=== PATIENT | female | born 1985 | race Caucasian/White ===

== ENCOUNTER → 2017-10-16 | Outpatient (CLI) | payer OTHER ==
--- NOTE | 2017-10-16 14:06 | US ---
EXAMINATION TYPE: US OB <= 14 wk fetus DATE OF EXAM: 10/16/2017 COMPARISON: NONE CLINICAL HISTORY: Z36 Confirm dates. G1 EXAM PERFORMED: Transabdominal (TA) EXAM MEASUREMENTS: GESTATIONAL AGE / DATING Physician Established: not established Dates by LMP: (8 weeks/5 days) EDC: 05/23/2018 Dates by First Scan: No previous this is first scan Dates by Current Scan for: ( 8 weeks/5 days) EDC: 05/23/2018 MATERNAL ANATOMY Uterus: 10.2 x 6.1 x 5.5cm Right Ovary: 2.6 x 2.7 x 1.5cm Left Ovary: 4.4 x 3.7 x 2.2cm with Corpus Luteum of Post CDS / Adnexa: wnl Presence of free fluid: no Presence of corpus luteal cyst: in left ovary = 1.8 x 1.5 x 1.8cm Presence of subchorionic bleed: no GESTATION / SURVEY CRL: 2.1 (8 weeks/5 days) Yolk Sac (normal less than 6mm): 3.6mm Heart Rate: 177 bpm Rhythm: Normal IUP: Viable IUP Date of LMP: 08/16/2017 Beta HcG (if available): Not available at this time IMPRESSION: Single, viable IUP, 8 weeks/5 days, EDC: 05/23/2018; HR 177bpm.
[2017-10-16 14:25] LABS: CH 30.4; CHCM 32.9; HCT 43.1 % (34.0-46.0); HGB 13.8 gm/dL (11.4-16.0); MCH 29.6 pg (25.0-35.0); MCHC 31.9 g/dL (31.0-37.0); MCV 92.8 fL (80.0-100.0); Mean Platelet Volume 8.7; RBC 4.65 m/uL (3.80-5.40); WBC 9.5 k/uL (3.8-10.6)
[2017-10-16 14:37] LABS: Glucose 83 mg/dL (74-99); Non-African American GFR(MDRD) >60 (>60 ml/min/1.73 sqM)
[2017-10-16 19:24] LABS: Treponemal Ab Non-Reactive (Non-Reactive)
== END | disposition home or self-care (01) ==
LOC: RADUSWWP 13:18
PROVIDERS: ATTEND Obstetrics & Gynecology
DX: Z36.9 Encounter for antenatal screening, unspecified (principal); O26.811 Pregnancy related exhaustion and fatigue, first trimester; Z3A.01 Less than 8 weeks gestation of pregnancy
CPT/HCPCS: 36415; 76801; 82565; 82947; 85027; 86762; 86777; 86778; 86780; 86850; 86900; 86901; 87340; 87390

== ENCOUNTER 2018-05-21 20:30 | Inpatient (IN) | payer OTHER ==
[2018-05-21] MEDS ORDERED: TERBUTALINE 1 MG/ML VIAL SQ PRN (20:46)
[2018-05-21] MEDS ORDERED: LIDOCAINE 1% (PF) 10 MG/ML (30 ML SDV) SQ PRN (20:46)
[2018-05-21] MEDS ORDERED: METHYLERGONOVINE 0.2 MG/ML 1 ML AMP IM PRN (20:46)
[2018-05-21] MEDS ORDERED: CARBOPROST TROMETHAMINE 250 MCG/ML 1 ML AMP IM PRN (20:46)
[2018-05-21] MEDS ORDERED: OXYTOCIN 10 UNIT/ML 1 ML VIAL IM PRN (20:46)
[2018-05-21] MEDS ORDERED: AMPICILLIN 2,000 MG in SODIUM CHLORIDE 0.9% 100 ML IVPB STA (20:51)
[2018-05-21] MEDS: LACTATED RINGERS 1,000 ML IV SCH (21:15)
[2018-05-21 21:27] LABS: Basophils % (A) 0 %; Eosinophils % (A) 0 %; HCT 39.6 % (34.0-46.0); HGB 13.5 gm/dL (11.4-16.0); Lymphocytes # (A) 1.7 k/uL (1.0-4.8); Lymphocytes % (A) 9 %; MCH 30.7 pg (25.0-35.0); MCV 90.4 fL (80.0-100.0); Mean Platelet Volume 8.2; Monocytes # (A) 0.9 k/uL (0-1.0); Monocytes % (A) 5 %; Neutrophils # (A) 16.4 k/uL (1.3-7.7); Neutrophils % (A) 85 %; Platelet Count 290 k/uL (150-450); RBC 4.38 m/uL (3.80-5.40); RDW 12.8 % (11.5-15.5); WBC 19.3 k/uL (3.8-10.6)
[2018-05-21 22:17] VITALS: BMI 34.9
[2018-05-22] MEDS ORDERED: BENZOCAINE/MENTHOL SPRAY 1 GM/SPRAY AEROSOL TOPICAL PRN (00:06)
[2018-05-22] MEDS ORDERED: WITCH HAZEL 1 EACH MED..PAD TOPICAL PRN (00:06)
[2018-05-22] MEDS ORDERED: diphenhydrAMINE 50 MG/ML 1 ML VIAL IVP PRN ×2 (00:06)
[2018-05-22] MEDS ORDERED: ZOLPIDEM 5 MG TAB PO PRN (00:06)
[2018-05-22] MEDS ORDERED: LANOLIN CREAM 5 GM TUBE TOPICAL PRN (00:06)
[2018-05-22] MEDS ORDERED: HYDROCORTISONE 2.5% RECTAL CREAM 30 GM TUBE RECTAL PRN (00:06)
[2018-05-22] MEDS ORDERED: diphenhydrAMINE 50 MG CAP PO PRN (00:06)
[2018-05-22] MEDS ORDERED: SIMETHICONE 80 MG CHEWABLE PO PRN (00:06)
[2018-05-22] MEDS ORDERED: diphenhydrAMINE 25 MG CAP PO PRN (00:06)
[2018-05-22] MEDS ORDERED: ACETAMINOPHEN TAB 325 MG TAB PO PRN (00:06)
--- NOTE | 2018-05-22 00:09 | P.HPOB ---
History of Present Illness H&P Date: 05/22/18 Chief Complaint: Intrauterine at term: Active labor Belkys is a 32-year-old at 39 weeks 5 days gestation arise in active labor dilated to 6 cm. She is group B strep positive and will therefore plan to give IV antibiotics and keep her intact as long as is feasible. Her course has otherwise been unremarkable and she is feeling well at this time. She voices no other complaints or issues. She is niki every 2-3 minutes at this time. She reports that she began having contractions approximately 4 AM. Pertinent labs did include O+ blood type Rh antibody was negative, rubella immune, hepatitis B/RPR/HIV were all negative. Groupie strep is again positive. heart tones are in the 130s and reactive. Past Medical History Past Medical History: No Reported History History of Any Multi-Drug Resistant Organisms: None Reported Past Surgical History: No Surgical Hx Reported Past Anesthesia/Blood Transfusion Reactions: No Reported Reaction Past Psychological History: No Psychological Hx Reported Smoking Status: Never smoker Past Drug Use History: None Reported - Past Family History Mother Family Medical History: Cancer, Hypertension Additional Family Medical History / Comment(s): breast cancer Medications and Allergies Home Medications Medication Instructions Recorded Confirmed Type Pnv,Calcium 72/Iron/Folic Acid 1 tab PO DAILY 05/21/18 05/21/18 History [ Plus Tablet] Allergies Allergy/AdvReac Type Severity Reaction Status Date / Time No Known Allergies Allergy Verified 05/21/18 20:41 Exam Osteopathic Statement: *. No significant issues noted on an osteopathic structural exam other than those noted in the History and Physical/Consult. - Vital Signs Vital signs: Vital Signs Temp Pulse Pulse Resp BP BP Pulse Ox 05/21/18 21:06 98.1 F 98 16 130/83 96 05/21/18 20:42 98.1 F 98 16 130/83 96 Intake and Output 05/21/18 05/21/18 05/22/18 14:59 22:59 06:59 Other: # Voids 2 Weight 95.254 kg - OBG Physical Exam Abdomen: bowel sounds normal, no diffuse tenderness, no bruit present, no guarding noted, no hepatomegaly, no splenomegaly, no mass Vulva: Scattered condyloma Vagina: normal moisture, no discharge Cervix: no lesion, no discharge Uterus: normal size, normal contour Adnexa: both: normal Anus/Rectum: Perirectal condyloma Results Result Diagrams: 05/21/18 21:10 Abnormal Lab Results - Last 24 Hours (Table) 05/21/18 Range/Units 21:10 WBC 19.3 H (3.8-10.6) k/uL Neutrophils # 16.4 H (1.3-7.7) k/uL
--- NOTE | 2018-05-22 00:11 | P.PROBDLV ---
Vaginal Delivery Note - . Vaginal Delivery Note: Patient progressed to complete and pushing with spontaneous vaginal delivery of a viable male over an intact perineum. Following delivery of the head from left occiput anterior position remainder the baby rapidly delivered pain cord was noted around baby. Easily reduced. There was thick meconium noted just shortly prior to delivery as artificial rupture membranes was done with the patient complete. The [employer] was present for delivery. Once baby was delivered mouth nares were bulb suctioned trying to keep the baby from crying as long as possible. Once mouth nares will book were bulb suctioned baby was placed mother's abdomen where the umbilical cord was allowed to pulsate for 30 seconds prior to clamping and cutting. Nursery personnel was then present to assume care. Placenta was then delivered intact and Pitocin was added to the IV. scores of 9 and 9 at one and 5 minutes respectfully and the weight was 6 lbs. 2 oz. Small left labial laceration was noted and the upper area of the labia was reapproximated with 3-0 Vicryl. Both mother and baby are stable following delivery.
[2018-05-22] MEDS: IBUPROFEN 600 MG TAB PO PRN ×3 (00:43→18:06)
[2018-05-22] MEDS ORDERED: AMPICILLIN 1,000 MG in SODIUM CHLORIDE 0.9% 50 ML IVPB SCH (01:00)
[2018-05-22] MEDS ORDERED: OXYTOCIN 20 UNITS/1000 ML NS 1,000 ML IV SCH (01:30)
--- NOTE | 2018-05-22 07:27 | P.PNOBGVD ---
Subjective - Subjective Principal diagnosis: day 1 Interval history: Doing very well, voices no complaints Patient reports: Reports appetite normal, Reports voiding normally, Reports pain well controlled, Reports ambulating normally : doing well Objective - Latest Vital Signs Latest vital signs: Vital Signs Temp Pulse Pulse Resp BP BP Pulse Ox 05/22/18 01:56 88 16 115/58 05/22/18 01:23 87 16 135/81 98 05/22/18 00:56 94 16 125/70 05/22/18 00:41 96 16 138/78 05/22/18 00:26 104 H 16 135/72 05/22/18 00:11 97.5 F L 107 H 16 136/74 05/22/18 00:00 107 H 16 138/78 05/21/18 23:56 97.6 F 114 H 16 143/80 05/21/18 21:06 98.1 F 98 16 130/83 96 05/21/18 20:42 98.1 F 98 16 130/83 96 Intake and Output 05/21/18 05/22/18 05/22/18 22:59 06:59 14:59 Output Total 300 Balance -300 Output: Estimated Blood Loss 300 Other: # Voids 2 1 Weight 95.254 kg - Exam Lungs: bilateral: normal Chest: Normal S1, Normal S2 Extremities: Present: normal Abdomen: Present: normal appearance, soft Uterus: Present: normal, firm - Labs Labs: Abnormal Lab Results - Last 24 Hours (Table) 05/21/18 Range/Units 21:10 WBC 19.3 H (3.8-10.6) k/uL Neutrophils # 16.4 H (1.3-7.7) k/uL
[2018-05-22] MEDS: LACTATED RINGERS 1,000 ML IV SCH (07:39)
[2018-05-22] MEDS: SENNOSIDES-DOCUSATE SODIUM 1 EACH TAB PO SCH ×2 (08:21→21:28)
[2018-05-23] MEDS: SENNOSIDES-DOCUSATE SODIUM 1 EACH TAB PO SCH (08:12)
[2018-05-23] MEDS: IBUPROFEN 600 MG TAB PO PRN (08:12)
[2018-05-23 09:30] VITALS: RESP 18; TEMP 98.4
[2018-05-23 09:57] VITALS: BP 130/73; PULSE 73
--- NOTE | 2018-05-23 10:21 | P.DS ---
Providers Date of admission: 05/21/18 20:40 Expected date of discharge: 05/23/18 Attending physician: Stu Wilson Primary care physician: Stated None Hospital Course: Summary is doing very well day 2. She is involuting, voiding, and she is tolerating her diet. She voices no complaints. Discharge instructions were thoroughly reviewed. Heart regular, lungs clear, extremities are without pain. Prescription for Motrin was sent to the pharmacy. All the questions are answered for her at this time. Her abdomen is soft her uterus is firm and her lochia is reported be light. Assessment day 2. Plan discharged home follow up with Dr. Wilson in 6 weeks Patient Condition at Discharge: Good Plan - Discharge Summary New Discharge Prescriptions: New Ibuprofen [Motrin] 600 mg PO Q6HR PRN #30 tab PRN Reason: Pain No Action Pnv,Calcium 72/Iron/Folic Acid [ Plus Tablet] 1 tab PO DAILY Discharge Medication List Pnv,Calcium 72/Iron/Folic Acid [ Plus Tablet] 1 tab PO DAILY 05/21/18 [ History] Ibuprofen [Motrin] 600 mg PO Q6HR PRN #30 tab 05/23/18 [Rx] Follow up Appointment(s)/Referral(s): Stu Wilson MD [STAFF PHYSICIAN] - 1 Week Activity/Diet/Wound Care/Special Instructions: No heavy lifting, limit stairs and driving, and pelvic rest. If any high temperatures, heavy bleeding, or severe pain call my office Discharge Disposition: HOME SELF-CARE
== END 2018-05-23 14:58 | disposition home or self-care (01) | DRG 775 ==
LOC: FBPOP 20:30 → 4FBP 20:40
PROVIDERS: ADMIT Obstetrics & Gynecology; ATTEND Obstetrics & Gynecology
PROC: 10E0XZZ Delivery of Products of Conception, External Approach (ICD-10-PCS; principal; 2018-05-21)
PROC: 10907ZC Drainage of Amniotic Fluid, Therapeutic from Products of Conception, Via Natural or Artificial Opening (ICD-10-PCS; 2018-05-21)
PROC: 0HQ9XZZ Repair Perineum Skin, External Approach (ICD-10-PCS; 2018-05-21)
DX: O70.0 First degree perineal laceration during delivery (principal); O99.824 Streptococcus B carrier state complicating childbirth; O77.0 Labor and delivery complicated by meconium in amniotic fluid; Z37.0 Single live birth; Z3A.39 39 weeks gestation of pregnancy; Z80.3 Family history of malignant neoplasm of breast; Z82.49 Family history of ischemic heart disease and other diseases of the circulatory system
CPT/HCPCS: 59025; 85025; 88307; 99213

== ENCOUNTER → 2022-12-11 | Outpatient (CLI) | payer BC ==
--- NOTE | 2022-12-13 16:26 | MM ---
Reason for Exam: Screening (asymptomatic). Baseline mammogram. Patient History: Maternal aunt had breast cancer. Mother had breast cancer, age 50. Last menstrual period: 11/23/2022 Risk Values: Alison 5 year model risk: 0.6%. NCI Lifetime model risk: 16.7%. Prior Study Comparison: Patient's first Mammogram. No prior studies available for comparison. Tissue Density: There are scattered fibroglandular densities. Findings: Analyzed By CAD. No significant mass, suspicious microcalcification, or other discrete abnormality is seen. A few scattered benign punctate dermal calcifications noted on both sides. Overall Assessment: Benign, BI-RAD 2 Management: Screening Mammogram of both breasts in 1 year. 1. Patient should continue monthly self breast exams. 2. A clinical breast exam by your physician is recommended on an annual basis. 3. This exam should not preclude additional follow-up of suspicious palpable abnormalities. Electronically signed and approved by: Bindu Alicia M.D. Radiologist
== END | disposition home or self-care (01) ==
LOC: RADMAMWWP 14:45
PROVIDERS: ATTEND Obstetrics & Gynecology
DX: Z12.31 Encounter for screening mammogram for malignant neoplasm of breast (principal); Z80.3 Family history of malignant neoplasm of breast
CPT/HCPCS: 77063; 77067

== ENCOUNTER → 2024-01-06 | Outpatient (CLI) | payer BC ==
--- NOTE | 2024-01-07 08:51 | MM ---
Reason for Exam: Screening (asymptomatic). Last mammogram was performed 1 year(s) and 1 month(s) ago. Patient History: Menarche at age 15. First Full-Term at age 32. Late child-bearing (after 30). Maternal aunt had breast cancer. Mother had breast cancer, age 50. Last menstrual period: 12/13/2023 Risk Values: Alison 5 year model risk: 0.7%. NCI Lifetime model risk: 17.9%. Prior Study Comparison: 12/11/2022 Bilateral MG 3D screening mammo w/cad, [facility]. Tissue Density: There are scattered fibroglandular densities. Findings: Analyzed By CAD. There is no suspicious group of microcalcifications or new suspicious mass in either breast. Calcifications. Overall Assessment: Benign, BI-RAD 2 Management: Screening Mammogram of both breasts in 1 year. . Patient should continue monthly self-breast exams. A clinical breast exam by your physician is recommended on an annual basis. This exam should not preclude additional follow-up of suspicious palpable abnormalities. Note on Alison scores and lifetime risk: 1. A Alison score greater than 3% is considered moderate risk. If this is the case, consider specialist referral to assess eligibility for a risk reducing agent. 2. If overall lifetime risk for the development of breast cancer is 20% or higher, the patient may qualify for future screening with alternating mammogram and breast MRI. Electronically signed and approved by: Emiliano Reed M.D. Radiologis
== END | disposition home or self-care (01) ==
LOC: RADMAMWWP 14:34
PROVIDERS: ATTEND Obstetrics & Gynecology
DX: Z12.31 Encounter for screening mammogram for malignant neoplasm of breast (principal); Z80.3 Family history of malignant neoplasm of breast
CPT/HCPCS: 77063; 77067

== ENCOUNTER → 2024-10-26 | Outpatient (CLI) | payer OTHER ==
[2024-10-26 13:57] LABS: Glucose 3 Hour, Gest 64 mg/dL
== END | disposition home or self-care (01) ==
LOC: LABWHC1 08:49
PROVIDERS: ATTEND Obstetrics & Gynecology
DX: O99.810 Abnormal glucose complicating pregnancy (principal); Z3A.00 Weeks of gestation of pregnancy not specified
CPT/HCPCS: 36415; 82951; 82952

== ENCOUNTER 2024-12-27 06:11 | Inpatient (IN) | payer OTHER ==
[2024-12-27] MEDS: LACTATED RINGERS 1,000 ML IV SCH (06:30)
[2024-12-27] MEDS ORDERED: TRANEXAMIC 1,000 MG/100ML-NACL 1,000 MG in EMPTY BAG 1 BAG IV PRN (06:33)
[2024-12-27] MEDS ORDERED: METHYLERGONOVINE 0.2 MG/ML 1 ML AMP IM PRN (06:33)
[2024-12-27] MEDS ORDERED: miSOPROStoL 200 MCG TAB RECTAL PRN (06:33)
[2024-12-27] MEDS ORDERED: miSOPROStoL 200 MCG TAB PO PRN (06:33)
[2024-12-27] MEDS ORDERED: CARBOPROST TROMETHAMINE 250 MCG/ML 1 ML AMP IM PRN (06:33)
[2024-12-27] MEDS ORDERED: OXYTOCIN 10 UNIT/ML 1 ML VIAL IM PRN (06:33)
[2024-12-27] MEDS ORDERED: TERBUTALINE 1 MG/ML VIAL SQ PRN (06:33)
[2024-12-27 07:00] LABS: Basophils % (A) 0 %; Eosinophils # (A) 0.4 k/uL (0-0.7); Eosinophils % (A) 3 %; HCT 36.5 % (34.0-46.0); HGB 12.1 gm/dL (11.4-16.0); Lymphocytes # (A) 2.3 k/uL (1.0-4.8); Lymphocytes % (A) 19 %; MCH 30.3 pg (25.0-35.0); MCHC 33.3 g/dL (31.0-37.0); MCV 91.2 fL (80.0-100.0); Mean Platelet Volume 8.7; Monocytes # (A) 0.8 k/uL (0-1.0); Monocytes % (A) 6 %; Neutrophils # (A) 8.6 k/uL (1.3-7.7); Neutrophils % (A) 70 %; Platelet Count 227 k/uL (150-450); RDW 13.1 % (11.5-15.5); WBC 12.2 k/uL (3.8-10.6)
[2024-12-27] MEDS: OXYTOCIN 30 UNITS/500 ML NS 30 UNIT in SALINE 1 500ML.BAG IV SCH (07:00)
[2024-12-27] MEDS: AMPICILLIN 2,000 MG in SODIUM CHLORIDE 0.9% 100 ML IVPB STA (07:15)
--- NOTE | 2024-12-27 07:36 | P.HPOB ---
History of Present Illness H&P Date: 12/27/24 Chief Complaint: induction of labor 39 year old presents for induction of labor at 40 weeks 1 day. She is 1-2/50/-3 and she is niki irregularly. heart tones 135 with moderate variability and reactive. Review of Systems All systems: negative Constitutional: Denies chills, Denies fever Eyes: denies blurred vision, denies pain Ears, nose, mouth and throat: Denies headache, Denies sore throat Cardiovascular: Denies chest pain, Denies shortness of breath Respiratory: Denies cough Gastrointestinal: Denies abdominal pain, Denies diarrhea, Denies nausea, Denies vomiting Genitourinary: Denies dysuria, Denies hematuria Musculoskeletal: Denies myalgias Integumentary: Denies pruritus, Denies rash Neurological: Denies numbness, Denies weakness Psychiatric: Denies anxiety, Denies depression Endocrine: Denies fatigue, Denies weight change Past Medical History Past Medical History: No Reported History History of Any Multi-Drug Resistant Organisms: None Reported Past Surgical History: No Surgical Hx Reported Past Anesthesia/Blood Transfusion Reactions: No Reported Reaction Past Psychological History: No Psychological Hx Reported Past Drug Use History: None Reported - Past Family History Mother Family Medical History: Cancer, Hypertension Additional Family Medical History / Comment(s): breast cancer Medications and Allergies Home Medications Medication Instructions Recorded Confirmed Type Pnv,Calcium 72/Iron/Folic Acid 1 tab PO DAILY 05/21/18 12/27/24 History [ Plus Tablet] Aspirin [Adult Low Dose Aspirin EC] 81 mg PO DAILY 12/27/24 12/27/24 History Allergies Allergy/AdvReac Type Severity Reaction Status Date / Time No Known Allergies Allergy Verified 12/27/24 06:32 Exam Osteopathic Statement: *. No significant issues noted on an osteopathic structural exam other than those noted in the History and Physical/Consult. Intake and Output 12/26/24 12/27/24 12/27/24 22:59 06:59 14:59 Other: Weight 111.584 kg Heart: Regular rate and rhythm Lungs: Clear to auscultation bilaterally Abdomen: Soft, nontender Extremities: Negative Homans sign Results Result Diagrams: 12/27/24 06:34 Abnormal Lab Results - Last 24 Hours (Table) 12/27/24 Range/Units 06:34 WBC 12.2 H (3.8-10.6) k/uL Neutrophils # 8.6 H (1.3-7.7) k/uL Assessment and Plan (1) 40 weeks gestation of Current Visit: Yes Status: Acute Code(s): Z3A.40 - 40 WEEKS GESTATION OF SNOMED Code(s): 23634085 (2) AMA (advanced maternal age) multigravida 35+ Current Visit: Yes Status: Acute Code(s): O09.529 - SUPERVISION OF ELDERLY MULTIGRAVIDA, UNSPECIFIED TRIMESTER SNOMED Code(s): 778473889 (3) Encounter for induction of labor Current Visit: Yes Status: Acute Code(s): Z34.90 - ENCNTR FOR SUPRVSN OF NORMAL , UNSP, UNSP TRIMESTER SNOMED Code(s): 451159136 Plan: 1. induction of labor with amniotomy and pitocin 2. anticipate normal vaginal delivery
[2024-12-27] MEDS: AMPICILLIN 1,000 MG in SODIUM CHLORIDE 0.9% 50 ML IVPB SCH (11:10)
[2024-12-27] MEDS ORDERED: fentaNYL (PF) 50 MCG/ML 5 ML AMP ONE (12:38)
[2024-12-27] MEDS ORDERED: ROPIVACAINE 5 MG/ML 30 ML VIAL ONE (12:38)
[2024-12-27] MEDS ORDERED: SODIUM CHLORIDE 0.9% 250 ML BAG ONE (12:38)
[2024-12-27] MEDS: LIDOCAINE 0.5% (PF) 5 MG/ML (50 ML SDV) SQ PRN (16:30)
[2024-12-27] MEDS ORDERED: diphenhydrAMINE 50 MG CAP PO PRN (18:21)
[2024-12-27] MEDS ORDERED: ZOLPIDEM 5 MG TAB PO PRN (18:21)
[2024-12-27] MEDS ORDERED: diphenhydrAMINE 50 MG/ML 1 ML VIAL IVP PRN ×2 (18:21)
[2024-12-27] MEDS ORDERED: diphenhydrAMINE 25 MG CAP PO PRN (18:21)
[2024-12-27] MEDS ORDERED: SIMETHICONE 80 MG CHEWABLE PO PRN (18:21)
[2024-12-27] MEDS ORDERED: LANOLIN CREAM 1 GM TUBE TOPICAL PRN (18:21)
[2024-12-27] MEDS ORDERED: HYDROCORTISONE 2.5% RECTAL CREAM 30 GM TUBE RECTAL PRN (18:21)
[2024-12-27] MEDS ORDERED: OXYTOCIN 30 UNITS/500 ML NS 30 UNIT in SALINE 1 500ML.BAG IV SCH (18:30)
[2024-12-27] MEDS: BENZOCAINE/MENTHOL SPRAY 1 GM/SPRAY AEROSOL TOPICAL PRN (18:37)
[2024-12-28] MEDS: SENNOSIDES-DOCUSATE SODIUM 1 EACH TAB PO SCH (00:04)
[2024-12-28] MEDS: ACETAMINOPHEN TAB 500 MG TAB PO SCH (01:34)
--- NOTE | 2024-12-28 02:03 | P.PROBDLV ---
Vaginal Delivery Note - . Vaginal Delivery Note: 39 year old presents for induction of labor at 40 weeks 1 day. She is 1-2/50/-3 and she is niki irregularly. heart tones 135 with moderate variability and reactive. Pitocin was started and amniotomy performed at 7:19 AM, meconium stained fluid noted. She dilated slowly throughout the day and did get an epidural and was comfortable. Her cervix was completely dilated around 1600. She pushed, delivered a viable male infant over midline episiotomy under epidural anesthesia 1626. She had pushed the baby to a large crown for several minutes but had a difficult time getting enough power to push the baby out so a small episiotomy was made after the perineum was infiltrated with lidocaine. Head delivered OA, anterior shoulder delivered gentle downward guidance followed by posterior shoulder rest of body. Nose and mouth bulb suction, clear come to cut, placed on mother's abdomen. Apgars 9, 9, weight 7 pounds 11 ounces. Send I delivered spontaneously, intact with three- vessel cord at 1629. Vagina, cervix, perineum were inspected. Second-degree midline episiotomy was repaired with 3-0 Vicryl. Estimated blood loss 200 mL. Mother and baby in stable condition.
[2024-12-28] MEDS: IBUPROFEN 800 MG TAB PO SCH (03:48)
[2024-12-28 07:12] LABS: Basophils # (A) 0.1 k/uL (0-0.2); Basophils % (A) 0 %; Eosinophils # (A) 0.2 k/uL (0-0.7); Eosinophils % (A) 1 %; HCT 31.3 % (34.0-46.0); HGB 10.2 gm/dL (11.4-16.0); Lymphocytes # (A) 2.2 k/uL (1.0-4.8); Lymphocytes % (A) 13 %; MCHC 32.4 g/dL (31.0-37.0); MCV 92.4 fL (80.0-100.0); Mean Platelet Volume 8.7; Monocytes # (A) 1.2 k/uL (0-1.0); Monocytes % (A) 7 %; Neutrophils # (A) 13.2 k/uL (1.3-7.7); Neutrophils % (A) 77 %; Platelet Count 191 k/uL (150-450); RBC 3.39 m/uL (3.80-5.40); RDW 13.2 % (11.5-15.5); WBC 17.1 k/uL (3.8-10.6)
--- NOTE | 2024-12-28 08:19 | P.DS ---
Providers Date of admission: 12/27/24 06:11 Expected date of discharge: 12/28/24 Attending physician: Vicki Davidson Primary care physician: Stated None - Discharge Diagnosis(es) (1) 40 weeks gestation of Current Visit: Yes Status: Resolved (2) AMA (advanced maternal age) multigravida 35+ Current Visit: Yes Status: Resolved (3) Encounter for induction of labor Current Visit: Yes Status: Resolved (4) Normal vaginal delivery Current Visit: Yes Status: Acute Hospital Course: Presented for induction of labor. She underwent a normal vaginal delivery. course has been uneventful. She denies nausea, vomiting, chest pain, shortness of breath or calf pain. Patient will be discharged home day #1 in stable condition to follow-up with me in 6 weeks. Plan - Discharge Summary New Discharge Prescriptions: New Docusate [Colace] 100 mg PO BID #60 capsule Ibuprofen [Motrin] 800 mg PO Q8H #30 tab No Action Pnv,Calcium 72/Iron/Folic Acid [ Plus Tablet] 1 tab PO DAILY Aspirin [Adult Low Dose Aspirin EC] 81 mg PO DAILY Discharge Medication List Pnv,Calcium 72/Iron/Folic Acid [ Plus Tablet] 1 tab PO DAILY 05/21/18 [History] Aspirin [Adult Low Dose Aspirin EC] 81 mg PO DAILY 12/27/24 [History] Docusate [Colace] 100 mg PO BID #60 capsule 12/28/24 [Rx] Ibuprofen [Motrin] 800 mg PO Q8H #30 tab 12/28/24 [Rx] Follow up Appointment(s)/Referral(s): Vicki Davidson DO [Doctor of Osteopathic Medicine] - 02/10/25 11:15 am Discharge Disposition: HOME SELF-CARE
[2024-12-29 15:36] VITALS: BP 111/68; PULSE 86; RESP 15; TEMP 98.2
== END 2024-12-29 16:15 | disposition home or self-care (01) | DRG 807 ==
LOC: 4FBP 06:11
PROVIDERS: ADMIT Obstetrics & Gynecology; ATTEND Obstetrics & Gynecology
PROC: 3E033VJ Introduction of Other Hormone into Peripheral Vein, Percutaneous Approach (ICD-10-PCS; principal; 2024-12-27)
PROC: 10907ZC Drainage of Amniotic Fluid, Therapeutic from Products of Conception, Via Natural or Artificial Opening (ICD-10-PCS; principal; 2024-12-27)
PROC: 10E0XZZ Delivery of Products of Conception, External Approach (ICD-10-PCS; 2024-12-28)
PROC: 0W8NXZZ Division of Female Perineum, External Approach (ICD-10-PCS; 2024-12-28)
DX: O48.0 Post-term pregnancy (principal); O77.0 Labor and delivery complicated by meconium in amniotic fluid; Z79.82 Long term (current) use of aspirin; Z3A.40 40 weeks gestation of pregnancy; Z37.0 Single live birth
CPT/HCPCS: 85025; 86850; 86900; 86901